=== PATIENT | female | born 1980 | race Caucasian/White ===

== ENCOUNTER 2023-12-24 11:16 | Emergency (ER) | payer OTHER ==
[~2023-12-24] VITALS: Ht 170.2 cm; Wt 59.1 kg
[~2023-12-24 11:16] MED LIST: ABILIFY20 MG PO; ADULT MULTIVIT1 EACH PO; ALEVE 220MG220 MG PO; ATIVAN 0.50.5 MG/TAB PO; ATIVAN 1MG T1 MG/TAB PO; BENADRYL50 MG PO; CALCIUM CARBON650 M2 PO; CARAFATE 1GM1 G PO; CELEBREX 200MG200 MG PO; CIPRO 250MG TA250 MG PO; CIPRO 500MG TA500 MG PO; CLEOCIN HCL300 MG PO; COUMADIN 77.5 MG/TAB PO; DEPAKOTE ER 25250 MG PO; DEPAKOTE ER 50500 MG PO; DESYREL 50MG50 MG PO; DIASTAT PEDIAT2.5 MG RC; FAM-PREN FORTE1 CAP PO; FIORICET 325 MG1 TA1 PO; FLAGYL500 MG PO; FLEXERIL 1010 MG/TAB PO; FOLIC ACID 11 MG/TA1 PO; FOLIC ACID0.4 MG PO; HALDOL 2MG T2 MG/TAB PO; HARD NAILS 2.51 CAP PO; KEPPRA1000 MG PO; KEPPRA750 MG PO; KLONOPIN 0.5MG0.5 MG PO; KLONOPIN 1MG1 MG PO; LAMICTAL 100MG100 MG PO; LEXAPRO20 MG PO; LIDODERM 5% PATC1 EA TP; LOVENOX 100100 MG/ML SQ; MELATIN 3 MG-11 TAB PO; MELATONIN 3MG PO; MELATONIN3 M1 PO; MOTRIN 400400 MG/TAB PO; MULTI VITAMINS1 TAB PO; MULTIPLE VITAMI1 TAB PO; NAPROSYN500 MG PO; NORCO 325 MG-51 TAB PO; PHENERGAN 25 TA25 MG PO; PRIL40 PO; PRILOSEC 20MG20 MG PO; REGLAN 10MG10 MG/TAB PO; REMERON 15M15 MG/TA1 PO; REMERON30 MG PO; REXULTI1 MG PO; REXULTI4 MG PO; TYLENOL 325MG325 MG PO; VERSED 2MG/2M1 MG/ML IH; VITAMIN B COMPL1 SGL PO; VITAMIN B COMPL1 T16 PO; XIFAXAN550 MG PO; ZOFRAN 4MG T4 MG/TAB PO; ZOFRAN ODT4 MG PO; [UNRECOGNIZED DRUG - OTHER] PO
[2023-12-24 11:18] VITALS: TEMP 98.1
[2023-12-24] MEDS ORDERED: LORazepam 2 MG/ML 1 ML VIAL IV ONE (11:45)
[2023-12-24 11:59] LABS: BASO # 0.1 K/mm3 (0.0-0.2); BASO % 0.5 % (0.0-2.0); EOS % 0.2 % (0.0-4.0); GRAN # 7.6 K/mm3 (1.4-6.5); GRAN % 72.5 % (42.2-75.2); HEMATOCRIT 45.4 % (37.0-47.0); HEMOGLOBIN 14.8 g/dl (12.5-16.0); LYMPH # 2.3 K/mm3 (1.2-3.4); LYMPH % 21.4 % (20.0-51.0); MEAN CELL VOLUME 87 fl (80.0-100.0); MEAN CORPUSCULAR HEMOGLOBIN 28 pg (27-31); MEAN CORPUSCULAR HGB CONC 33 g/dl (33.0-37.0); MEAN PLATELET VOLUME 9.3 fl (7.4-10.4); MONO # 0.5 K/mm3 (0.1-0.6); PLATELET COUNT 301 K/mm3 (130-400); RED BLOOD COUNT 5.25 M/mm3 (4.10-5.30); REDCELL DISTRIBUTION WIDTH-CV 12.4 % (11.5-14.5)
[2023-12-24 12:13] LABS: ALBUMIN 5.1 gm/dL (3.5-5.0); BILIRUBIN,TOTAL 0.9 mg/dL (0.2-1.2); CALCIUM 10.4 mg/dL (8.4-10.2); CREATININE, serum 1.18 mg/dL (0.57-1.11); POTASSIUM 3.2 mmol/L (3.5-4.5); TOTAL PROTEIN 8.6 gm/dL (6.2-8.1)
[2023-12-24 12:28] LABS: PROLACTIN 43.1 ng/mL (5.18-26.53)
[2023-12-24 13:50] VITALS: BP 128/74; PULSE 86
[2023-12-24 13:57] LABS: TRICYCLIC ANTIDEPRESS URINE NEGATIVE (NEGATIVE)
== END 2023-12-24 13:55 | disposition home or self-care (01) ==
LOC: COL.ER 11:16
PROVIDERS: Physician Assistant
DX: R41.82 Altered mental status, unspecified (principal)
CPT/HCPCS: J2060